=== PATIENT | male | born 1995 | race African-American/Black ===

== ENCOUNTER 2021-12-10 12:54 | Emergency (ER) | payer OTHER ==
[2021-12-10 13:03] VITALS: BP 110/77; PULSE 76; RESP 16; TEMP 98.1; BMI 19.3
[2021-12-10] MEDS ORDERED: KETOROLAC TROMETHAMINE 30 MG/1 ML VIAL IM ONE (13:46)
[2021-12-10] MEDS ORDERED: LIDOCAINE 5% TOPICAL PATCH TP ONE (13:46)
[2021-12-10] MEDS ORDERED: CYCLOBENZAPRINE HCL 10 MG TABLET (FP) PO ONE (13:46)
[2021-12-10] MEDS ORDERED: ACETAMINOPHEN 500 MG TABLET (FP) PO ONE (13:46)
[2021-12-10] MEDS ORDERED: CYCLOBENZAPRINE HCL 10 MG TABLET (FP) ONE (13:51)
[2021-12-10] MEDS ORDERED: ACETAMINOPHEN 500 MG TABLET (FP) ONE (13:51)
[2021-12-10] MEDS ORDERED: LIDOCAINE PATCH REMOVAL MC SCH (22:00)
== END 2021-12-10 14:46 | disposition home or self-care (01) ==
LOC: JERFT 12:54
PROC: 3E0233Z Introduction of Anti-inflammatory into Muscle, Percutaneous Approach (ICD-10-PCS; principal; 2021-12-10)
DX: M54.50 Low back pain, unspecified (principal); M54.2 Cervicalgia; V42.9XXA Unspecified car occupant injured in collision with two- or three-wheeled motor vehicle in traffic accident, initial encounter
CPT/HCPCS: 99284-25